=== PATIENT | male | born 1980 | race Caucasian/White ===

== ENCOUNTER 2020-07-24 22:36 | Emergency (ER) | payer OTHER ==
--- NOTE | 2020-07-25 00:24 | ER ---
Nurse's Notes [facility] Name: Manuel Jesus Age: 40 yrs Sex: Male : 1980 Arrival Date: 07/24/2020 Time: 22:41 Bed 6 Private MD: Diagnosis: Presentation: 07/24 22:48 Chief complaint: Patient states: feels jittery after taking preworkout. Coronavirus ak2 screen: Client denies travel out of the [place] in the last 14 days. Ebola Screen: Patient negative for fever greater than or equal to 101.5 degrees Fahrenheit, and additional compatible Ebola Virus Disease symptoms Patient denies exposure to infectious person. Patient denies travel to an Ebola-affected area in the 21 days before illness onset. No symptoms or risks identified at this time. Initial Sepsis Screen: Does the patient meet any 2 criteria? No. Patient's initial sepsis screen is negative. Does the patient have a suspected source of infection? No. Patient's initial sepsis screen is negative. Risk Assessment: Do you want to hurt yourself or someone else? Patient reports no desire to harm self or others. Onset of symptoms was July 24, 2020. 22:48 Method Of Arrival: Ambulatory ak2 22:48 Acuity: DUNG 4 ak2 07/25 00:20 Note left without being seen. ak2 Triage Assessment: 07/24 22:50 General: Appears in no apparent distress. Behavior is calm, cooperative. Pain: Denies ak2 pain. Historical: - Allergies: 22:50 No Known Allergies; ak2 - Immunization history:: Adult Immunizations up to date. - Social history:: Smoking status: unknown. Vital Signs: 22:48 BP 135 / 89; Pulse 86; Resp 18; Temp 97.6(O); Pulse Ox 100% ; Weight 98.43 kg; Height 5 ak2 ft. 11 in. (180.34 cm); 22:48 Body Mass Index 30.27 (98.43 kg, 180.34 cm) ak2 ED Course: 22:41 Patient arrived in ED. cf2 22:49 Triage completed. ak2 07/25 00:23 Bernabe Rey MD is Attending Physician. ak2 Administered Medications: No medications were administered Outcome: 00:22 Eloped from waiting room. ak2 00:23 Patient left the ED. ak2 Signatures: Hannah Florentino cf2 Phan Ervin ak2
[2020-07-25 00:42] VITALS: BP 135/89; TEMP 97.6; O2SAT 100
== END 2020-07-25 00:23 | disposition left against medical advice (07) ==
LOC: ER 22:36
DX: Z53.21 Procedure and treatment not carried out due to patient leaving prior to being seen by health care provider (principal)
CPT/HCPCS: 99281